=== PATIENT | female | born 1970 | race Caucasian/White ===

== ENCOUNTER 2016-07-23 06:41 | Day surgery (SDC) | payer OTHER ==
[2016-07-23] VITALS (11 sets, daily range): BP systolic 96–110; BP diastolic 57–68; PULSE 1–71; RESP 13–18; O2SAT 96–100
[~2016-07-23] VITALS: Ht 167.6 cm; Wt 75.9 kg
[~2016-07-23 06:41] MED LIST: AMIT10TA6 PO; CHOL200025 PO; CeFAZolin Inj 2 GM in IV Premix 1 EACH IV ONE; DIGE1CAP PO; ESTR1PAT13 TD; HYDR28OI2 TP; LEVO125T2 PO; Lactated Ringer's 1,000 ML IV SCH; MULT-1018 PO; fish oil; iodine; novolog SC; prometrium
[2016-07-23] MEDS ORDERED: Ketamine 10 mg/mL 20 mL Inj ONE (06:42)
[2016-07-23] MEDS ORDERED: Dexamethasone 4 mg/mL Inj ONE (06:42)
[2016-07-23] MEDS ORDERED: Ondansetron 2 mg/mL 2 mL Inj ONE (06:42)
[2016-07-23] MEDS ORDERED: Lidocaine PF 1% 30 mL Inj ONE (06:42)
[2016-07-23] MEDS ORDERED: fentaNYL-PF 50 mCg/mL 2 mL Inj ONE (06:42)
[2016-07-23] MEDS ORDERED: Propofol 10,000 mCg/mL 20 mL Inj ONE (06:42)
[2016-07-23] MEDS ORDERED: CeFAZolin Inj 2 gm / 50mL D5W IV ONE (06:48)
[2016-07-23] MEDS ORDERED: Lactated Ringer's 1,000 ML IV ONE (07:01)
[2016-07-23] MEDS ORDERED: Belladonna Alk-Opium 60 mg Rectal Suppository RECTAL ONE (08:37)
[2016-07-23] MEDS ORDERED: Bupivacaine-MPF 0.5% 30 mL Inj INFILTRATE ONE (08:42)
[2016-07-23] MEDS ORDERED: Lidocaine 2% 5 mL Topical Jelly TOPICAL ONE (08:42)
[2016-07-23] MEDS ORDERED: Lactated Ringer's 1,000 ML IV SCH (08:43)
[2016-07-23] MEDS ORDERED: Lactated Ringer's 500 ML IV PRN (08:43)
--- NOTE | 2016-07-23 08:43 | PCM.HPANE ---
Patient Data Date of Service: Jul 23, 2016 Surgeon Admitting Provider: Attending Provider:Zaida Maravilla MD Primary Care Physician:Cy Jaramillo MD Other Provider:Clayton Taylor Anesthesia Reason for Visit Interstitial Cystitis Ht/WT & BMI Height (Feet): 5 Height (Inches): 6.00 Weight (Kilograms): 75.930 Body Mass Index 26.00 Allergies Coded Allergies: Sulfa (Sulfonamide Antibiotics) (Verified Allergy, Severe, 08/06/14) Penicillins (Verified Allergy, Intermediate, Hives, 08/05/14) Reaction when she was a child Past Anesthesia History Anesthesia History: Denies:: Abnormal Airway, Anesthesia Reactions, Difficult Intubation, Fam Anesthesia Reaction Diabetes History Hx Diabetes?: Yes (INSULIN PUMP) Type of Diabetes: Type I Glycemic Control: Insulin Pump Current Bedside Blood Glucose: 150 MRSA MRSA: No Medications Hypertension Medication: No Home Meds Incl Beta Emerson: No Reported Medications Estradiol (Vivelle-Dot)1 Each Patch.tdsw1 Each TD DAILY 07/21/16 Cholecalciferol (Vitamin D3) (Vitamin D3)2,000 Unit Tablet2,000 Unit PO DAILY 07/21/16 Levothyroxine (Synthroid)125 Mcg [id number] Mcg PO DAILY Ref 0 07/21/16 [prometrium] No Conflict Check1.5 Capsule DAILY for 10 day course 07/21/16 [novolog] 100U/ml No Conflict CheckUnknown Dose SC 07/21/16 Multivitamin (Multi Vitamin Daily)1 Each Tablet1 Each PO DAILY 30 Days Ref 0 07/21/16 [iodine] No Conflict CheckUnknown Dose DAILY 07/21/16 [fish oil] No Conflict CheckUnknown Dose DAILY 07/21/16 Digestive Enzymes Combo No.7 (Superior Digestive Enzyme)1 Each Capsule1 Each PO DAILY 07/21/16 Amitriptyline 10 Mg [id number] Mg PO HS Ref 0 07/21/16 Discontinued Reported Medications Hydrocortisone Acetate (Hydrocortisone)28 Gm Oint...g.28 Gm TP PRN skin irritation 07/21/16 Estradiol (Estradiol 0.1 mg/24 hr Tdrm Patch)1 Each Patch.tdwk1 Patch TD QW 30 Days Ref 0 08/05/14 Insulin Lispro (HumaLOG U100 Insulin Cartridge Refill)100 Unit/1 Ml Cartridge SUBQ TID-INSULIN #1 PKG Ref 0 Blood Sugar Lispro Correction <151 0 units 151-175 1 unit 176-200 2 units 201-225 3 units 226-250 4 units 251-275 5 units 276-300 6 units 301-325 7 units 326-350 8 units 351-375 9 units 376-400 10 units >400 12 units Check blood sugars before meals and at bedtime. Use correction factor only before meals. 08/05/14 Levothyroxine (Synthroid)125 Mcg [id number] Mcg PO DAILY 30 Days Ref 0 08/05/14 History History of ENT Problems?: Yes HEENT History: Positive for:: TMJ (grinds and clenches- no nightguard) Denies:: Abnormal Airway Cataracts Difficult Intubation Dysphagia Glaucoma Hearing Problem Sinus Problem Hx of Heart Problems?: No Cardiovascular History: Denies:: AICD Abdominal Aortic Aneurism Atrial Fibrillation Congestive Heart Failure Coronary Artery Disease Edema Heart Murmur Hypertension Irregular Heartbeat Pacemaker Rheumatic Fever Thrombophlebitis Hx of Respiratory Problem?: No Respiratory History: Denies:: Asthma COPD Emphysema Oxygen Administration Pneumonia (walking pneumonia, remote hx) Tuberculosis Use of C-PAP Machine (sleep study requested, not yet done- waiting for insurance) Use of Inhalers / NEBS Hx Neurologic Problems?: No Neurological History: Denies:: Alzheimer's Disease CVA Dementia Dizziness Headaches Multiple Sclerosis Parkinson's Disease Seizures TIA Hx of GI Problems?: No Gastrointestinal History: Denies:: Cirrhosis Diverticulitis Gall Bladder Disease Gastroesphageal Reflux Gastrointestinal Bleeding Heartburn Hepatitis Hiatal Hernia Liver Disease Rectal Bleeding Hx of Problems?: Yes Genitourinary History: Positive for:: Urinary Tract Infection (bladder infection hx, not currently) Denies:: Kidney Stones Other Pertinent History: interstitial cystitis current admission problem Female Hx: Denies:: Currently (TUBAL LIG) Problems with Breasts? Skin History: Denies:: History Skin Disorders? Pressure Ulcers Hx Musculoskeletal Problems?: Yes Musculoskeletal History: Positive for:: Back Injury (cervical neck issues) Musculoskeletal Trauma (joint pain- related to autoimmune) Denies:: Degenerative Joint Fibromyalgia (not diagnosed) Joint Replacement Myasthenia Gravis Osteoarthritis Rheumatoid Arthritis Systemic Lupus Hx of Psycho/Social Problems?: Yes Psycho Social History: Positive for:: Anxiety (not on meds ) Hx Surgeries?: Yes ( and shoulder) Hx Any Other Health Problems?: Yes Other History: Positive for:: Thyroid Disease Denies:: Cancer History Blood Transfusions: Positive for:: Accept Blood Products? Denies:: Blood Transfusions Hx Diabetes: Yes (INSULIN PUMP)Bedside Blood Glucose: 150 Hx Alcohol Use: YesAlcoholic Drinks Per Day: 2-3 glasses weeklyHx Substance Use: No Smoking Status: Former Smoker Have You Smoked inLast 12 mo: No Stop/Bang Treated for Sleep Apnea?: No Do You Have a CPAP Machine?: No S-Snoring: Do You Snore Loudly: No T-Tired: feel tired, fatigued: Yes O-Obsered: Observed not breath: No P-Blood Pressure: treated: No B- Body Mass Index > 35 kg/m2: No A- Age over 50: No N- Neck Large Circumference: No G- Gender Male: No NEMESIO Total Score: 1 NEMESIO Risk Assessment: Low Risk, <3 Yes NEMESIO Category 1: Yes Risk Assessment Category Category 1A: Patient has history of documented sleep apnea, and HAS NOT received any narcotic, sedative or anesthesia administration during this stay. Category 1B: Patient has history of documented sleep apnea, and HAS received any narcotic , sedative or anesthesia administration during this stay Category 2: Patient has SUSPECTED Obstructive Sleep Apnea, and HAS received any narcotic , sedative or anesthesia administration during this stay. Category 3: Patient has SUSPECTED Obstructive Sleep Apnea and HAS NOT received narcotic, sedative or anesthesia administration during this stay. Category 4: Outpatient in Procedural Areas with known sleep apnea or who screen positive for High Risk via the STOP/BANG questionnaire. Exam Exam Vital Signs Vital Signs Date Time Temp Pulse Resp B/P Pulse Ox O2 Delivery O2 Flow Rate FiO2 07/23/16 07:01 36.4 71 17 110/62 97 Room Air General Appearance: Alert, Oriented X3, Cooperative, No Acute Distress HEENT/AIRWAY: MP 1, Neck Movement (Limited C-sp ROM,. particularly in rotation. No radicular Sx.) Lungs: Clear to Auscultation, Normal Air Movement Heart: Normal S1, Normal S2 Meds/Labs/Diagnostics Admission Meds Current Medications Lactated Ringer's (Lr) 1,000 ml @ ud STK-MED ONCE IV Last administered on t 07:01; Start 07/23/16 at 07:01; Stop 07/23/16 at 07:02; Status DC Bedside Blood Glucose: 150 Plan Impression Patient chart reviewed, patient interviewed and anesthestic plan with risks, benefits, and alternatives discussed, and informed consent obtained. NPO Status: 07/22@2245 ASA Physical Status: ASA2 Mod Systemic Disease Anesthetic Plan: GA Bene/Risks/Altern/Consents: Yes HP Complete Prior to Induction: Yes Mike Gomez DO Jul 23, 2016 08:43
[2016-07-23] MEDS ORDERED: Phenylephrine 10,000 mCg/mL Inj IVPUSH PRN (08:45)
[2016-07-23] MEDS ORDERED: Atropine 0.4 mg/mL Inj IVPUSH PRN (08:45)
[2016-07-23] MEDS ORDERED: Dexamethasone 4 mg/mL Inj IVPUSH PRN (08:45)
[2016-07-23] MEDS ORDERED: Ondansetron 2 mg/mL 2 mL Inj IVPUSH PRN (08:45)
[2016-07-23] MEDS ORDERED: MetoCLOpramide 5 mg/mL 2 mL Inj IVPUSH PRN (08:45)
[2016-07-23] MEDS ORDERED: EPHEDrine Sulfate 50 mg/mL Inj IVPUSH PRN (08:45)
[2016-07-23] MEDS ORDERED: HYDROcodone-APAP 5-325 mg Tablet PO PRN (09:00)
[2016-07-23] MEDS: fentaNYL-PF 50 mCg/mL 2 mL Inj IVPUSH PRN ×2 (09:09→09:15)
[2016-07-23] MEDS: HYDROmorphone 1 mg/mL Inj IVPUSH PRN ×3 (09:17→09:38)
--- NOTE | 2016-07-23 09:19 | OP ---
[address] [address] OPERATIVE REPORT PATIENT: HOA SAMANIEGO : 1970 MR#: [id number] ADMIT: 07/23/2016 JOB ID: [id number] DATE OF SURGERY: 07/23/2016 SURGEON: Zaida Maravilla MD. PREOPERATIVE DIAGNOSIS(ES): Interstitial cystitis. POSTOPERATIVE DIAGNOSIS(ES): Interstitial cystitis. PROCEDURE: 1. Cystoscopy. 2. Hydrodistention. ANESTHESIA: General anesthetic, Dr. Chairez. DESCRIPTION OF PROCEDURE: Under general anesthetic, the patient placed in lithotomy position. Genitalia prepped and draped in a sterile manner. A 25-Zimbabwean cystoscope was introduced through a normal urethra. Ureteral orifices were normal in position and appearance. There was a patchy paleness to the bladder which was otherwise unremarkable. Hydrodistention was commenced at 60 cm of water and increased incrementally to 110 cm of water. Maximum pressure was held for 5 minutes. Maximum hydrodistention achieved 1400 cc. Following release of distention there was a marked petechial reaction throughout the bladder. Mixture of Marcaine and Xylocaine, and Xylocaine jelly were then instilled into the bladder. A B and O suppository was given for postoperative analgesia. The patient tolerated the procedure well, left the operating room in good condition.
--- NOTE | 2016-07-23 09:39 | PCM.ANEP1 ---
Post Anesthesia Phase 1 PACU Phase 1 Assessment Date of Service: Jul 23, 2016 Vital Signs Vital Signs Date Time Temp Pulse Resp B/P Pulse Ox O2 Delivery O2 Flow Rate FiO2 07/23/16 09:27 62 13 96/57 99 Room Air 07/23/16 09:20 60 18 101/57 98 Room Air 07/23/16 09:10 61 17 105/57 96 Room Air 07/23/16 09:05 66 15 105/65 100 Simple Mask 10 07/23/16 09:00 36.9 63 15 107/60 100 Simple Mask 10 07/23/16 07:01 36.4 71 17 110/62 97 Room Air Anesthetic Administered: GA Level of Alertness: Sleepy, easy to arouse SANDERS's with Equal Strength: Yes Pain: No Nausea or Vomiting: No Airway Device: LMA removed in PACU at Pt request Lungs: Clear to Auscultation, Normal Air Movement Dermatome Level: Full Sensation Summary Pt transferred to PACU care with full report to Mike Mills DO Jul 23, 2016 09:39
--- NOTE | 2016-07-23 11:33 | PCM.ANEP2 ---
Post Anesthesia Evaluation ASA/CMS Post Anesthesia Date of Service: Jul 23, 2016 VS in Patient's Normal Range?: Yes Resp Stable; Airway Patent?: Yes CV Function & Hydration Stable: Yes Mental Status Recovered?: Yes Pain control Satisfactory?: Yes N/V Control Satisfactory?: Yes Mike Gomez DO Jul 23, 2016 11:33
== END 2016-07-23 23:59 | disposition home or self-care (01) ==
LOC: SAS 06:41
PROVIDERS: ATTEND Urology
DX: N30.10 Interstitial cystitis (chronic) without hematuria (principal); E10.9 Type 1 diabetes mellitus without complications; Z96.41 Presence of insulin pump (external) (internal)
CPT/HCPCS: 51700; J0690; J1100; J1170; J2250; J2405; J3010; J7120